=== PATIENT | male | born 1995 | race Caucasian/White ===

== ENCOUNTER → 2016-09-24 | Outpatient (CLI) | payer OTHER ==
[~2016-09-24] MED LIST: METHACHOLINE KIT (J7674) INH ONE
--- NOTE | 2016-09-24 18:32 | PFTRPT ---
Tech: Jodi FRIEDMAN RRT Age: 21 Sex: Male Race: Height: 72.00 Inches Weight: 172.00 Lbs BSA: 2.00 Diagnosis: R06.02 METHACHOLINE CHALLENGE REPORT: ORDERING PROVIDER: JONNIE Guerrero DATE OF SERVICE: 09/24/16 INTERPRETATION: The study was of excellent technical quality. Under protocol, methacholine was administered. At a dose of 2.5 mg (13.875 CDUs), a 42% decline in the FEV1 was noted. The PC20 of 0.34 is significant. Flow rates returned to baseline post bronchodilator administration. IMPRESSION: Positive methacholine challenge study. MTDD
== END ==
LOC: M CARPUL 12:31
PROVIDERS: ATTEND Nurse Practitioner Adult Health
DX: R06.02 Shortness of breath (principal)